=== PATIENT | female | born 1995 | race Caucasian/White ===

== ENCOUNTER 2025-01-26 06:43 | Outpatient (CLI) | payer MEDICAID | END 2025-01-26 23:59 | disposition home or self-care (01) | LOC: MRI02 06:43 | PROVIDERS: ATTEND Orthopaedic Surgery | DX: S42.291D Other displaced fracture of upper end of right humerus, subsequent encounter for fracture with routine healing (principal); M25.411 Effusion, right shoulder; S43.014D Anterior dislocation of right humerus, subsequent encounter; S43.431D Superior glenoid labrum lesion of right shoulder, subsequent encounter; M75.51 Bursitis of right shoulder; X58.XXXD Exposure to other specified factors, subsequent encounter | CPT/HCPCS: 73221 ==